=== PATIENT | male | born 1970 | race Caucasian/White ===

== ENCOUNTER 2021-07-09 10:27 | Emergency (ER) | payer BC, SELFPAY ==
[2021-07-09 10:36] VITALS: BP 139/87; PULSE 74; RESP 20; TEMP 36; O2SAT 99
[2021-07-09 10:42] VITALS: BP 139/87; PULSE 74; RESP 20; TEMP 36; O2SAT 99
--- NOTE | 2021-07-09 10:51 | ED.URI ---
HPI - URI/Sore Throat General Chief Complaint: Upper Respiratory Infection Stated Complaint: Congestion, sore throat, headache Time Seen by Provider: 07/09/21 10:51 Source: patient and RN notes reviewed Mode of arrival: ambulatory Limitations: no limitations History of Present Illness HPI Narrative: 51-year-old male presented for complaint of nausea, diarrhea, headache, fever/chills for 2 days. Endorses decreased appetite. He states he went to bed yesterday at noon and got out of bed around 0400 today. Endorses approximately 2 weeks of right nostril congestion with yellow drainage. He states his family has been suffering from sinus issues. He has taken Mucinex D last week for symptoms. Currently denies cough or shortness of breath, wheezing, earache or sore throat. He has not taken anything for the symptoms over the last 2 days. He is not boosted for COVID or vaccinated for flu. MD elicited complaint: cough Related Data Allergies Allergy/AdvReac Type Severity Reaction Status Date / Time No Known Allergies Allergy Verified 07/09/21 10:41 Review of Systems Review of Systems: CONSTITUTIONAL: Endorses malaise, chills, sweats, fever EYES: Denies visual changes, redness, or discharge ENT: Reports rhinorrhea, congestion CARDIOVASCULAR: Denies chest pain, palpitations, edema RESPIRATORY: Denies dyspnea cough, endorses post nasal drainage. GASTROINTESTINAL: Denies abdominal pain, vomiting, endorses nausea, diarrhea SKIN: Denies rash or itching MUSCULOSKELETAL: Endorses myalgia NEUROLOGIC: Denies headache Exam Narrative: GENERAL: Ill-appearing, nontoxic HEAD: Normocephalic EYES: conjunctivae clear ENT: Mucous membranes moist. TM pearly andres with dull light reflex bilaterally; no tragal tenderness. Oropharynx erythematous without lesions or exudate, no drooling, no hoarseness, no trismus, uvula midline. NECK: Supple. No lymphadenopathy CHEST: Clear to auscultation, breath sounds equal. No wheezing, rhonchi, rales, or stridor. No respiratory distress, speaks in full sentences. HEART: Regular rate and rhythm. No murmur heard. SKIN: Warm, dry, no rash. NEURO: Alert and oriented x3. PSYCH: Normal mood and affect Course Course Emergency Course: Patient is aware of diagnosis, understands and agrees to treatment plan. Anticipatory guidance given. Patient agrees to follow-up as directed and is aware of reasons to seek care at the emergency department. Portions of this record may have been created with voice recognition software Level of Care: Express Care Visit Vital Signs Vital signs: Vital Signs Temperature 96.8 F L 07/09/21 10:36 Pulse Rate 74 07/09/21 10:36 Respiratory Rate 20 07/09/21 10:36 Blood Pressure 139/87 07/09/21 10:36 Pulse Oximetry 99 07/09/21 10:36 Temperature 96.8 F L 07/09/21 10:42 Pulse Rate 74 07/09/21 10:42 Respiratory Rate 20 07/09/21 10:42 Blood Pressure 139/87 07/09/21 10:42 Pulse Oximetry 99 07/09/21 10:42 reviewed MDM - URI/Sore Throat MDM Narrative Medical decision making narrative: flu and covid negative. Given URI sx >10 days and right facial pain, pt will be given abx. He is appropriate for outpt treatment and f/u. Differential Diagnosis Differential diagnosis: Likely upper respiratory infection, sinusitis, viral infection and influenza Lab Data Attestation: I reviewed the patient's lab results. Labs: Influenza A Screen Negative Reference Range: Negative Influenza B Screen Negative Reference Range: Negative Discharge Plan Discharge Clinical Impression: Upper respiratory infection Qualifiers: URI type: unspecified URI Qualified Code(s): J06.9 - Acute upper respiratory infection, unspecified Patient Disposition: Home, Self-Care Condition: Stable Instructions: Antibiotic Form, Sinusitis (ED) Additional Instructions
== END 2021-07-09 11:36 | disposition home or self-care (01) ==
PROVIDERS: Emergency Provider Nurse Practitioner Family
DX: J06.9 Acute upper respiratory infection, unspecified (principal); Z20.822 Contact with and (suspected) exposure to COVID-19
CPT/HCPCS: 87426; 87804; 99213; C9803; G0463

== ENCOUNTER 2022-04-21 00:15 | Day surgery (SDC) | payer BC, SELFPAY ==
[2022-04-11 13:30] VITALS: BMI 27.1
[2022-04-21 11:47] VITALS: BP 138/83; PULSE 82; RESP 18; TEMP 36.2; O2SAT 98
[2022-04-21] MEDS: LACTATED RINGERS 1,000 ML 150 ML IV CONT (11:56)
--- NOTE | 2022-04-21 12:24 | WPDANESEPPF ---
Anes - Initial Pre Proc Eval Procedure: Operation Date: 04/21/22 13:00 Proposed Procedures p Screening Colonoscopy - Robert Varghese MD Date/Time: 04/21/22 12:24 Surgeon: Robert Varghese MD Pre Op Diagnosis: neoplasm screening Patient Data Age: 51 Gender: M Height: 1.83 m Weight: 92.6 kg Last Vital Signs Temp 36.2 C L 04/21/22 11:47 Pulse 82 04/21/22 11:47 Resp 18 04/21/22 11:47 BP 138/83 04/21/22 11:47 Pulse Ox 98 04/21/22 11:47 O2 Del Method Room Air 04/21/22 11:47 Allergies Allergy/AdvReac Type Severity Reaction Status Date / Time No Known Allergies Allergy Verified 04/21/22 11:46 Home Medications Medication Instructions Recorded Confirmed Type No Home Medications 04/21/22 04/21/22 History Patient hx anesthesia problems: none Family hx anesthesia problems: none Results Review: All pre-operative results and documents have been reviewed as part of the pre-operative evaluation. [facility] Surgical History Surgical History (Updated 04/21/22 @ 12:24 by Everardo Albarado MD) H/O arthroscopic knee surgery Social History Social History Smoking status: Never smoker Alcohol intake: never Substance use: never Substance use type: does not use Living arrangements: with family Occupation/Education: occupation Gender identity (if verbalized by the patient): Male Sexual Orientation (if Verbalized by the Patient): Straight or Heterosexual Spiritual care concerns: No Anes - Eval Final PreProcedure Day of Procedure 04/21/22 12:24 Patient weight: normal Heart: regular rate and rhythm Lungs: clear to auscultation Airway: Mallampati scale class 1 Neurological: alert and oriented Last oral intake: >/= 8 hours ASA classification: I Emergent: no Anesthetic plan: proceed Anesthesia type and monitoring: general GIVS and standard monitoring Results Review: All pre-operative results and documents have been reviewed as part of the pre-operative evaluation. Informed Consent: The patient's anesthetic plan and its attendant risks and benefits were discussed with the patient/family/POA. Questions were solicited and answers provided to the satisfaction of the patient/family/POA.
--- NOTE | 2022-04-21 12:46 | P.HP_ITS ---
History of Present Illness History of Present Illness Consent: Risks, benefits, and alternatives have been discussed and questions answered. Patient agrees to proceed with procedure. Chief complaint: neoplasm screening Narrative: Michoacano Trevino is a 51 year old male Presents for screening colonoscopy. Patient's current weight appetite and bowel movements are normal. Patient denies abdominal pain. He has had no bleeding. Family history is significant t hat his father had colon polyps. Patient presents today for colonoscopy. Review of Systems Review of Systems: Review of systems noncontributory. [facility] Surgical History Surgical History (Updated 04/21/22 @ 12:24 by Everardo Albarado MD) H/O arthroscopic knee surgery Social History Social History Smoking status: Never smoker Alcohol intake: never Substance use: never Substance use type: does not use Living arrangements: with family Occupation/Education: occupation Gender identity (if verbalized by the patient): Male Sexual Orientation (if Verbalized by the Patient): Straight or Heterosexual Spiritual care concerns: No Meds Home Medications and Allergies Home Medications Medication Instructions Recorded Confirmed Type No Home Medications 04/21/22 04/21/22 History Allergies Allergy/AdvReac Type Severity Reaction Status Date / Time No Known Allergies Allergy Verified 04/21/22 11:46 Vital Signs Vital Signs - 24 hr 04/21/22 11:47 Temperature 97.2 F L Pulse Rate 82 Respiratory Rate 18 Blood Pressure 138/83 Pulse Oximetry 98 Oxygen Delivery Room Air Exam Narrative: Physical exam reveals patient to be alert. Vital signs stable. HEENT exam is unremarkable. Patient is anicteric. Lungs are clear to auscultation and percussion. Heart is without murmur or extra sounds. Abdomen bowel sounds are present soft nontender with no organomegaly. Digital external rectal exam is normal. Assessment and Plan Assessment and plan (1) Encounter for screening colonoscopy: Code(s): Z12.11 - Encounter for screening for malignant neoplasm of colon Status: Acute Assessment and Plan: Patient presents today for screening colonoscopy. Appears to be in good health. Family history is significant this father had colon polyps. Plan for surveillance colonoscopy now consider this a 5-7 years in the future. Further recommendations may be given after endoscopy.
[2022-04-21] MEDS: SIMETHICONE ORAL SUSPENSION 20 MG/0.3 ML 30 ML BOTTLE 0.6 ML IRRIGATION (12:55)
[2022-04-21 13:03] VITALS: BP 113/73; PULSE 68; RESP 22; O2SAT 95
[2022-04-21 13:13] VITALS: BP 115/77; PULSE 73; RESP 22; O2SAT 97
[2022-04-21 13:23] VITALS: BP 122/77; PULSE 70; RESP 17; O2SAT 97
== END 2022-04-21 13:35 | disposition home or self-care (01) ==
PROVIDERS: PCP Family Medicine; Visit Provider Internal Medicine Gastroenterology
PROC: 0DJD8ZZ Inspection of Lower Intestinal Tract, Via Natural or Artificial Opening Endoscopic (ICD-10-PCS; CPT 45378; principal; 2022-04-21 13:00)
DX: Z12.11 Encounter for screening for malignant neoplasm of colon (principal); K64.8 Other hemorrhoids; Z83.71 Family history of colonic polyps
CPT/HCPCS: 45378; J2704; J7120